=== PATIENT | male | born 1945 | race Hispanic/Latino ===

== ENCOUNTER 2017-12-29 01:59 | Emergency (ER) | payer MEDICARE ==
[2017-12-29 02:00] VITALS: BMI 28.7
--- NOTE | 2017-12-29 03:06 | ED PDOC ---
Arrival/HPI - General Chief Complaint: GI Problem Time Seen by Provider: 12/29/17 02:20 Historian: Patient - History of Present Illness Narrative History of Present Illness (Text): 12/29/17 03:05 Marko Lr is a 72 year old male, whose past medical history includes CAD with 3 coronary stents, who presents to the Emergency department complaining of fever. Patient states he has been experiencing intermittent fevers after eating dinner yesterday evening. Patient reports associated headache and diarrhea. Patient states he has been alternating Motrin and Tylenol. Patient denies any chest pain, shortness of breath, nausea, vomiting, urinary symptoms, back pain, neck pain, dizziness, or any other complaints. Time/Duration: < week (yesterday) Symptom Onset: Gradual Symptom Course: Unchanged Activities at Onset: Light Context: Home Past Medical History - Provider Review Nursing Documentation Reviewed: Yes - Infectious Disease Hx of Infectious Diseases: None - Tetanus Immunization Tetanus Immunization: Unknown - Cardiac Hx Hypertension: Yes Hx Pacemaker: No Other/Comment: DVT - Pulmonary Hx Respiratory Disorders: Yes (hx pe) Hx Chronic Obstructive Pulmonary Disease (COPD): Yes - Neurological Hx Paralysis: No - HEENT Hx HEENT Disorder: (left eye diminished vision) - Hematological/Oncological Hx Blood Transfusions: No Hx Blood Transfusion Reaction: No Hx Cancer: Yes (throat cancer 2009) - Musculoskeletal/Rheumatological Hx Musculoskeletal Disorders: Yes - Psychiatric Hx Emotional Abuse: No Hx Physical Abuse: No Hx Substance Use: No - Surgical History Hx Appendectomy: Yes Hx Coronary Stent: Yes (x3) Other/Comment: cervical spine sx, left hip replacement 2 yrs ago, left eye laser sx for bleeding, bilateral varicose vein sx 3 yrs ago - Anesthesia Hx Anesthesia: Yes Hx Anesthesia Reactions: No Hx Malignant Hyperthermia: No - Suicidal Assessment Feels Threatened In Home Enviroment: No Family/Social History - Physician Review Nursing Documentation Reviewed: Yes Family/Social History: Unknown Family HX Smoking Status: Former Smoker Hx Alcohol Use: No Hx Substance Use: No Hx Substance Use Treatment: No Allergies/Home Meds Allergies/Adverse Reactions: Allergies codeine Allergy (Verified 12/29/17 02:36) HEADACHE Home Medications: Home Meds Medication Instructions Recorded Confirmed Metoprolol Succinate 50 mg PO BID 01/23/12 12/29/17 Warfarin [Coumadin] 10 mg PO DAILY 01/23/12 12/29/17 Aclidinium [place] [Tudorza 1 puff INH BID PRN 08/01/15 12/29/17 Pressair] Amlodipine Besylate [Norvasc] 5 mg PO DAILY 11/27/15 12/29/17 Aspirin [Ecotrin] 81 mg PO DAILY 11/27/15 12/29/17 Atorvastatin [Lipitor] 10 mg PO DIN 11/27/15 12/29/17 Multivit-Mins/Iron/Folic/Lycop 1 each PO DAILY 11/27/15 12/29/17 [Centrum Men's Tablet] [place]-3/Dha/Epa/Fish Oil [Fish Oil] 1,000 mg PO DAILY 11/27/15 12/29/17 Home Med [Home Med] 25 mg PO DAILY 12/29/17 12/29/17 Review of Systems - Physician Review All systems were reviewed & negative as marked: Yes - Review of Systems Constitutional: Fevers Eyes: Normal ENT: Normal Respiratory: Normal. absent: SOB, Cough Cardiovascular: Normal. absent: Chest Pain Gastrointestinal: Diarrhea. absent: Abdominal Pain, Vomiting Genitourinary Male: Normal. absent: Dysuria, Frequency, Hematuria, Urinary Output Changes Musculoskeletal: Normal. absent: Back Pain, Neck Pain Skin: Normal. absent: Rash Neurological: Headache. absent: Dizziness Endocrine: Normal Hemo/Lymphatic: Normal Psychiatric: Normal Physical Exam Vital Signs Reviewed: Yes Vital Signs Temp Pulse Resp BP Pulse Ox 12/29/17 05:51 98 H 18 129/73 98 12/29/17 02:13 99.3 F 118 H 18 137/82 96 Temperature: Afebrile Blood Pressure: Normal Pulse: Regular Respiratory Rate: Normal Appearance: Positive for: Well-Appearing, Non-Toxic, Comfortable Pain Distress: None Mental Status: Positive for: Alert and Oriented X 3 - Systems Exam Head: Present: Atraumatic, Normocephalic Pupils: Present: PERRL Extroacular Muscles: Present: EOMI Conjunctiva: Present: Normal Ears: Present: NORMAL TM Mouth: Present: Moist Mucous Membranes Pharnyx: Present: Normal Neck: Present: Normal Range of Motion. No: Meningeal Signs Respiratory/Chest: Present: Clear to Auscultation, Good Air Exchange. No: Respiratory Distress, Accessory Muscle Use Cardiovascular: Present: Regular Rate and Rhythm, Normal S1, S2. No: Murmurs Abdomen: No: Tenderness, Distention, Peritoneal Signs Back: Present: Normal Inspection Upper Extremity: Present: Normal Inspection. No: Cyanosis, Edema Lower Extremity: Present: Normal Inspection. No: Edema Neurological: Present: GCS=15, CN II-XII Intact, Speech Normal, Motor Func Grossly Intact, Normal Sensory Function Skin: Present: Warm, Dry, Normal Color. No: Rashes Psychiatric: Present: Alert, Oriented x 3, Normal Insight, Normal Concentration Medical Decision Making ED Course and Treatment: 12/29/17 03:05 Impression: 72 year old male complaining of intermittent fever, headache, and diarrhea. Plan: -- EKG -- Chest X-ray -- Labs, blood cultures, VBG -- Urinalysis, urine cultures -- IV fluids -- Reassess and disposition Progress Notes: Reviewed EKG, sinus tachycardia at 108 bpm. Inferior infarct. Non-specific ST/T wave changes. 12/29/17 04:36 Chest X-ray reviewed, shows no acute processes. - Lab Interpretations Lab Results: 12/29/17 03:28 12/29/17 03:28 Lab Results 12/29/17 03:28: Sodium 138, Chloride 100, Potassium 3.2 L, Carbon Dioxide 25, Anion Gap 16, BUN 13, Creatinine 1.1, Est GFR ( Amer) > 60, Est GFR (Non- Af Amer) > 60, Random Glucose 168 H, Calcium 8.8, Total Bilirubin 0.9, AST 21, ALT 37, Alkaline Phosphatase 72, Total Protein 6.8, Albumin 4.0, Globulin 2.8, Albumin/Globulin Ratio 1.4 12/29/17 03:28: pO2 94 H, VBG pH 7.45 H, VBG pCO2 39.0 L, VBG HCO3 27.1, VBG Total CO2 28.3 H, VBG O2 Sat (Calc) 98.7 H, VBG Base Excess 3.0 H, VBG Potassium 3.1 L, Sodium 134.0, Chloride 103.0, Glucose 179 H, Lactate 1.2, FiO2 21.0, Venous Blood Potassium 3.1 L 12/29/17 03:28: PT 24.3 H, INR 2.10 H, APTT 35.1 12/29/17 03:28: WBC 8.5 D, RBC 4.71, Hgb 14.2, Hct 41.5 L, MCV 88.1, MCH 30.1, MCHC 34.2, RDW 13.9, Plt Count 179, MPV 8.9, Gran % 84.5 H, Lymph % (Auto) 4.8 L , [place] % (Auto) 10.5 H, Eos % (Auto) 0.1 L, Baso % (Auto) 0.1, Gran # 7.16 H, Lymph # (Auto) 0.4 L, [place] # (Auto) 0.9 H, Eos # (Auto) 0.0, Baso # (Auto) 0.01 , Neutrophils % (Manual) Pending, Lymphocytes % (Manual) Pending, Monocytes % ( Manual) Pending I have reviewed the lab results: Yes - RAD Interpretation Radiology Orders: 12/29/17 03:06 CHEST PORTABLE [RAD] Stat Fishing Tool Operator: ED Physician - EKG Interpretation Interpreted by ED Physician: Yes Type: 12 lead EKG - Medication Orders Current Medication Orders: Sodium Chloride (Sodium Chloride 0.9%) 1,000 mls @ 100 mls/hr IV .Q10H NITHIN Last Admin: 12/29/17 04:25 Dose: 100 mls/hr eMAR Start Stop Document 12/29/17 04:25 IT (Rec: 12/29/17 04:25 IT [id number]) Intravenous Solution Start Date 12/29/17 Start Time 04:25 Discontinued Medications Potassium Chloride (K-Dur 20 Meq Er Tab) 40 meq PO STAT STA Stop: 12/29/17 03:57 Last Admin: 12/29/17 04:25 Dose: 40 meq - Scribe Statement The provider has reviewed the documentation as recorded by the Nicholas Pedroza Provider Scribe Attestation: All medical record entries made by the Qamaribradha were at my direction and personally dictated by me. I have reviewed the chart and agree that the record accurately reflects my personal performance of the history, physical exam, medical decision making, and the department course for this patient. I have also personally directed, reviewed, and agree with the discharge instructions and disposition. Disposition/Present on Arrival - Present on Arrival Any Indicators Present on Arrival: No History of DVT/PE: No History of Uncontrolled Diabetes: No Urinary Catheter: No History of Decub. Ulcer: No History Surgical Site Infection Following: None - Disposition Have Diagnosis and Disposition been Completed?: Yes Diagnosis: Gastroenteritis Disposition: HOME/ ROUTINE Disposition Time: 06:05 Patient Plan: Discharge Condition: GOOD Discharge Instructions (ExitCare): Gastroenteritis (ED), Hypokalemia (DC) Additional Instructions: Drink plenty of liquids/may drink gatorade/potassium rich foods//advance diet as tolerated/follow up with your doctor this week/any recurrent worsening symptoms return to the emergency room Forms: [employer] ([place])
[2017-12-29] MEDS ORDERED: Sodium Chloride 0.9% 1,000 ML IV SCH (03:15)
[2017-12-29 03:48] LABS: INR 2.1 (0.93-1.08); PARTIAL THROMBOPLASTIN TIME 35.1 Seconds (25.1-36.5); PROTHROMBIN TIME 24.3 SECONDS (9.4-12.5)
[2017-12-29 03:49] LABS: VENOUS BLOOD GAS PO2 94 mm/Hg (30-55); VENOUS BLOOD PH 7.45 (7.32-7.43)
[2017-12-29 03:52] LABS: ALB/GLOB RATIO 1.4 (1.1-1.8); ALT/SGPT 37 U/L (7-56); AST/SGOT 21 U/L (17-59); BLOOD UREA NITROGEN 13 mg/dL (7-21); CALCIUM 8.8 mg/dL (8.4-10.5); GFR AFRICAN-AMERICAN > 60; GFR NON-AFRICAN AMERICAN > 60
[2017-12-29 03:54] LABS: BASO # 0.01 K/mm3 (0.0-2.0); BASO % 0.1 % (0.0-3.0); EOS % 0.1 % (1.5-5.0); GRAN # 7.16 (1.4-6.5); GRAN % 84.5 % (50.0-68.0); HEMOGLOBIN 14.2 g/dL (14.0-18.0); LYMPH # 0.4 (1.2-3.4); LYMPH % 4.8 % (22.0-35.0); MEAN CELL VOLUME 88.1 fl (80.0-105.0); MEAN CORPUSCULAR HEMOGLOBIN 30.1 pg (25.0-35.0); MEAN CORPUSCULAR HGB CONC 34.2 g/dl (31.0-37.0); MEAN PLATELET VOLUME 8.9 fl (7.0-11.0); MONO # 0.9 (0.1-0.6); MONO % 10.5 % (1.0-6.0); PLATELET COUNT 179 10^3/uL (120.0-450.0); RBC 4.71 10^6/uL (3.5-6.1); RED CELL DISTRIBUTION WIDTH 13.9 % (11.5-14.5); WHITE BLOOD COUNT 8.5 10^3/ul (4.5-11.0)
[2017-12-29] MEDS ORDERED: Potassium Chloride 20 mEq ER Tab PO STA (03:56)
[2017-12-29 05:52] VITALS: PULSE 98; O2SAT 98
[2017-12-29 06:09] LABS: URINE BILIRUBIN NEGATIVE (NEGATIVE); URINE BLOOD SMALL (NEGATIVE); URINE GLUCOSE (UA) NEGATIVE (NEGATIVE); URINE LEUKOCYTE ESTERASE NEGATIVE Leu/uL (NEGATIVE); URINE PROTEIN TRACE mg/dL (<30 mg/dL); URINE UROBILINOGEN 0.2 E.U./dL (<1 E.U./dL)
[2017-12-29 06:11] LABS: URINE APPEARANCE CLEAR (CLEAR); URINE COLOR YELLOW (YELLOW)
[2017-12-29 06:23] VITALS: BP 121/83; RESP 17; TEMP 98.2
[2017-12-29 06:27] LABS: BAND 9 % (0-2); LYMPHOCYTE 6 % (22.0-35.0); MONOCYTE 10 % (1.0-6.0); NEUTROPHIL 75 % (50.0-70.0); PLATELET ESTIMATE NORMAL (NORMAL)
[2017-12-29 06:36] LABS: URINE BACTERIA RARE (NEG); URINE EPITHELIAL CELLS 0 - 2 /hpf (0-5); URINE RBC 0 - 2 /hpf (0-2); URINE WBC 0 - 2 /hpf (0-6)
--- NOTE | 2017-12-29 09:39 | RAD ---
HISTORY: Sepsis Patient COMPARISON: 11/27/2015 FINDINGS: LUNGS: No active pulmonary disease. PLEURA: No significant pleural effusion identified, no pneumothorax apparent. CARDIOVASCULAR: Normal. OSSEOUS STRUCTURES: No significant abnormalities. VISUALIZED UPPER ABDOMEN: Normal. OTHER FINDINGS: None. IMPRESSION: No active disease.
--- NOTE | 2017-12-29 11:24 | CARD ---
APPROVED REPORT EKG Measurement Heart [id number] <Conclusion> Sinus tachycardia Possible Left posterior fascicular block Inferior infarct, old NSSTW changes No change except faster rate.
== END 2017-12-29 06:23 | disposition home or self-care (01) ==
LOC: ED 01:59
DX: K52.9 Noninfective gastroenteritis and colitis, unspecified (principal); I25.10 Atherosclerotic heart disease of native coronary artery without angina pectoris; I10 Essential (primary) hypertension; Z86.711 Personal history of pulmonary embolism; Z95.5 Presence of coronary angioplasty implant and graft; Z87.891 Personal history of nicotine dependence
CPT/HCPCS: 71045; 80053; 81001; 82803; 85025; 85610; 85730; 87040; 87086; 93005; 99283; J7030

== ENCOUNTER 2018-09-23 12:19 | Outpatient (CLI) | payer MEDICARE | END 2018-09-23 12:20 | disposition home or self-care (01) | LOC: RAD 12:19 ==

== ENCOUNTER 2018-10-05 09:59 | Outpatient (CLI) | payer MEDICARE | END 2018-10-05 10:00 | disposition home or self-care (01) | LOC: LAB 09:59 ==

== ENCOUNTER 2018-10-31 09:07 | Outpatient (CLI) | payer MEDICARE | END 2018-10-31 09:08 | disposition home or self-care (01) | LOC: LAB 09:07 ==

== ENCOUNTER → 2018-11-04 | Outpatient (CLI) | payer MEDICARE, BC | LOC: LAB 08:43 ==

== ENCOUNTER 2018-11-14 12:38 | Outpatient (CLI) | payer MEDICARE | END 2018-11-14 12:39 | disposition home or self-care (01) | LOC: RAD 12:38 ==